=== PATIENT | male | born 1985 | race African-American/Black ===

== ENCOUNTER → 2018-05-22 | Outpatient (CLI) | payer BC ==
--- NOTE | 2018-05-22 10:25 | US ---
EXAMINATION TYPE: US scrotum with doppler. Grayscale and color Doppler Duplex imaging performed of t he scrotum. DATE OF EXAM: 05/22/2018 COMPARISON: NONE CLINICAL HISTORY: L72.9 cyst of scrotum. Pt states palpable lump (pea size) right superior testicle x 2 weeks/ Denies pain EXAM MEASUREMENTS: TESTICLES: Right Testicle: 4.8 x 1.8 x 3.4 cm Left Testicle: 4.4 x 2.7 x 3.4 cm EPIDIDYMIS HEAD: Right Epididymis: 1.7 cm Left Epididymis: 1.4 cm Doppler performed to assess for testicular vascularity; good bilateral color flow and waveforms are s een. There is no evidence of testicular torsion. Presence of hydroceles: No Presence of varicoceles: No Small epi head cyst on right at area of pt's palpable= 0.8 x 0.6 x 0.8 cm IMPRESSION: The patient's palpable abnormality corresponds to a benign-appearing simple epididymal cyst.
== END | disposition home or self-care (01) ==
LOC: RADUSWWP 09:39
PROVIDERS: ATTEND Internal Medicine
DX: L72.9 Follicular cyst of the skin and subcutaneous tissue, unspecified (principal)
CPT/HCPCS: 76870; 93975